=== PATIENT | female | born 1955 | race Caucasian/White ===

== ENCOUNTER 2018-03-17 05:28 | Inpatient (IN) ==
[2018-03-17] MEDS ORDERED: VANCOMYCIN 1,000 MG VIAL ONE (05:53)
[2018-03-17] MEDS ORDERED: SCOPOLAMINE 1.5 MG PATCH TRANSDERM ONE ×2 (05:53→06:00)
[2018-03-17] MEDS ORDERED: ceFAZolin 1,000 MG VIAL ONE (05:53)
[2018-03-17] MEDS ORDERED: FAMOTIDINE 20 MG TABLET ONE (05:53)
[2018-03-17] MEDS ORDERED: ceFAZolin 1,000 MG in SYRINGE 1 EACH IV ONE (06:00)
[2018-03-17] MEDS ORDERED: FAMOTIDINE 20 MG TABLET PO ONE (06:00)
[2018-03-17] MEDS ORDERED: LACTATED RINGERS 1,000 ML IV SCH (06:00)
[2018-03-17] MEDS ORDERED: VANCOMYCIN INJ 1,000 MG in SODIUM CHLORIDE 0.9% 250 ML IV ONE (06:00)
[2018-03-17] MEDS ORDERED: BACITRACIN OINT 0.9 GM PACK TOP ONE (06:49)
[2018-03-17] MEDS ORDERED: ROPIVACAINE 0.5% 30 ML VIAL ONE (06:50)
[2018-03-17] MEDS ORDERED: MAGNESIUM HYDROXIDE SUSP 30 ML UDCUP PO PRN (08:48)
[2018-03-17] MEDS ORDERED: diphenhydrAMINE CAP 25 MG CAPSULE PO PRN (08:48)
[2018-03-17] MEDS ORDERED: CLORAZEPATE 3.75 MG TABLET PO PRN (08:48)
[2018-03-17] MEDS ORDERED: ONDANSETRON 4 MG/2 ML VIAL ONE (09:06)
[2018-03-17] MEDS ORDERED: PROPOFOL 200 MG/20 ML VIAL IV ONE (09:09)
[2018-03-17] MEDS ORDERED: fentaNYL 100 MCG/2 ML VIAL ONE (09:09)
[2018-03-17] MEDS ORDERED: BUPIVACAINE SPINAL 0.75% 2 ML AMP SPINAL ONE (09:09)
[2018-03-17] MEDS: ONDANSETRON 4 MG/2 ML VIAL IV PRN (09:09)
[2018-03-17] MEDS ORDERED: MIDAZOLAM 2 MG/2 ML VIAL ONE (09:09)
[2018-03-17] MEDS ORDERED: KETAMINE 500 MG/10 ML VIAL ONE (09:10)
[2018-03-17] MEDS ORDERED: SODIUM CHLORIDE 0.9% 250 ML IV ONE (09:10)
[2018-03-17] MEDS ORDERED: ETOMIDATE 40 MG/20 ML VIAL IV ONE (09:10)
[2018-03-17] MEDS ORDERED: PHENYLEPHRINE 1 MG/10 ML SYRINGE IV ONE (09:10)
[2018-03-17] MEDS ORDERED: TRANEXAMIC ACID 1,000 MG/10 ML VIAL ONE (09:11)
[2018-03-17] MEDS ORDERED: LIDOCAINE 1% 5 ML VIAL ONE (09:11)
[2018-03-17] MEDS: DOCUSATE SODIUM 100 MG CAPSULE PO SCH ×2 (10:33→20:35)
[2018-03-17] MEDS: METOPROLOL SUCCINATE XL 50 MG TABLET PO SCH ×2 (10:33→20:34)
[2018-03-17] MEDS: FLECAINIDE 50 MG TABLET PO SCH ×2 (10:33→20:34)
[2018-03-17] MEDS: PANTOPRAZOLE 40 MG TABLET PO SCH (10:33)
[2018-03-17] MEDS: KETOROLAC 30 MG/1 ML VIAL IV SCH ×3 (10:41→21:50)
[2018-03-17] MEDS: LACTATED RINGERS 1,000 ML IV SCH ×2 (10:41→18:02)
[2018-03-17] MEDS: MEPERIDINE 50 MG/1 ML VIAL IV PRN ×5 (11:35→23:08)
[2018-03-17 11:45] LABS: Basophils % 0.5 % (0.0-0.8); Eosinophils # 0.1 10*3/uL (0.0-0.87); Eosinophils % 1.1 % (0.00-10.9); Hematocrit 38.8 VOL% (35.7-47.0); Hemoglobin 12.8 GM/DL (12.0-16.0); Immature Granulocytes % 0.5 %; Immature Granulocytes Absolute 0.03 #; Mean Corpuscular Hemoglobin 29 PG (27-34); Mean Corpuscular Volume 88.6 FL (87-102); Mean Platelet Volume 8.8 FL (9.6-12.0); Monocytes # 0.6 10*3/uL (0.11-0.8); Monocytes % 9.7 % (1.7-12.7); Neutrophils # 3.7 10*3/uL (1.4-7.4); Neutrophils % 57.2 % (38.7-73.9); Platelet Count 162 T/CUMM (130-400); Red Blood Count 4.38 MC/CUMM (3.8-5.5); Red Cell Distribution Width 13.3 % (9.3-17.3); White Blood Count 6.5 T/CUMM (4-12)
[2018-03-17 12:06] LABS: Calcium 8.5 MG/DL (8.5-10.1); Osmolality,Calculated 277.4 MOS/KG (273-304); Potassium 4.3 MMOL/L (3.5-5.1)
[2018-03-17] MEDS: ACETAMINOPHEN 500 MG TABLET PO SCH ×2 (13:09→18:01)
[2018-03-17] MEDS: traMADol 50 MG TABLET PO PRN ×2 (13:09→21:50)
[2018-03-17] MEDS: ceFAZolin 1,000 MG in SYRINGE 1 EACH IV SCH ×2 (14:32→21:51)
[2018-03-17] MEDS: ATORVASTATIN 20 MG TABLET PO SCH (18:57)
[2018-03-17] MEDS: AMITRIPTYLINE 25 MG TABLET PO SCH (20:35)
[2018-03-18] MEDS: ACETAMINOPHEN 500 MG TABLET PO SCH ×2 (00:34→06:04)
[2018-03-18] MEDS: LACTATED RINGERS 1,000 ML IV SCH (01:50)
[2018-03-18] MEDS: MEPERIDINE 50 MG/1 ML VIAL IV PRN ×6 (01:51→23:09)
[2018-03-18] MEDS: KETOROLAC 30 MG/1 ML VIAL IV SCH (03:36)
[2018-03-18] MEDS: traMADol 50 MG TABLET PO PRN ×3 (03:36→20:17)
[2018-03-18] MEDS: FONDAPARINUX 2.5 MG/0.5 ML SYRINGE SUBCUT SCH (04:47)
[2018-03-18] MEDS: ONDANSETRON 4 MG/2 ML VIAL IV PRN ×2 (05:11→19:17)
[2018-03-18 05:46] LABS: Basophils % 0.4 % (0.0-0.8); Eosinophils # 0.1 10*3/uL (0.0-0.87); Eosinophils % 1.8 % (0.00-10.9); Hematocrit 35.1 VOL% (35.7-47.0); Hemoglobin 11.6 GM/DL (12.0-16.0); Immature Granulocytes % 0.4 %; Immature Granulocytes Absolute 0.03 #; Lymphocytes # 1.7 10*3/uL (1.4-4.0); Lymphocytes % 22.2 % (21.3-54.2); Mean Corpuscular Hemoglobin 29 PG (27-34); Mean Corpuscular Volume 87.8 FL (87-102); Mean Platelet Volume 8.9 FL (9.6-12.0); Monocytes # 0.9 10*3/uL (0.11-0.8); Monocytes % 11.7 % (1.7-12.7); Neutrophils # 4.8 10*3/uL (1.4-7.4); Neutrophils % 63.5 % (38.7-73.9); Platelet Count 181 T/CUMM (130-400); Red Cell Distribution Width 13.2 % (9.3-17.3); White Blood Count 7.6 T/CUMM (4-12)
[2018-03-18 06:08] LABS: Calcium 8.3 MG/DL (8.5-10.1); Osmolality,Calculated 266.2 MOS/KG (273-304)
[2018-03-18] MEDS: PANTOPRAZOLE 40 MG TABLET PO SCH (09:11)
[2018-03-18] MEDS: DOCUSATE SODIUM 100 MG CAPSULE PO SCH ×2 (09:11→20:18)
[2018-03-18] MEDS: FLECAINIDE 50 MG TABLET PO SCH ×2 (09:12→20:17)
[2018-03-18] MEDS: METOPROLOL SUCCINATE XL 50 MG TABLET PO SCH ×2 (09:13→20:17)
[2018-03-18] MEDS: CELECOXIB 200 MG CAPSULE PO SCH (14:09)
[2018-03-18] MEDS: ATORVASTATIN 20 MG TABLET PO SCH (18:02)
[2018-03-18] MEDS: AMITRIPTYLINE 25 MG TABLET PO SCH (20:18)
[2018-03-18] MEDS: TEMAZEPAM 7.5 MG CAPSULE PO SCH (23:11)
[2018-03-19] MEDS: traMADol 50 MG TABLET PO PRN ×2 (03:09→23:13)
[2018-03-19] MEDS: FONDAPARINUX 2.5 MG/0.5 ML SYRINGE SUBCUT SCH (04:35)
[2018-03-19 06:19] LABS: Basophils % 0.2 % (0.0-0.8); Eosinophils # 0.1 10*3/uL (0.0-0.87); Eosinophils % 1.8 % (0.00-10.9); Hematocrit 31.4 VOL% (35.7-47.0); Hemoglobin 10.4 GM/DL (12.0-16.0); Immature Granulocytes % 0.4 %; Immature Granulocytes Absolute 0.02 #; Lymphocytes # 0.9 10*3/uL (1.4-4.0); Lymphocytes % 16.4 % (21.3-54.2); Mean Corpuscular HGB Conc 33.1 GM/DL (32-36); Mean Corpuscular Hemoglobin 29 PG (27-34); Mean Corpuscular Volume 87.5 FL (87-102); Mean Platelet Volume 9.4 FL (9.6-12.0); Monocytes # 0.6 10*3/uL (0.11-0.8); Monocytes % 10.8 % (1.7-12.7); Neutrophils # 3.9 10*3/uL (1.4-7.4); Neutrophils % 70.4 % (38.7-73.9); Platelet Count 136 T/CUMM (130-400); Red Blood Count 3.59 MC/CUMM (3.8-5.5); Red Cell Distribution Width 13.2 % (9.3-17.3); White Blood Count 5.6 T/CUMM (4-12)
[2018-03-19] MEDS: ONDANSETRON 4 MG/2 ML VIAL IV PRN ×2 (06:35→20:09)
[2018-03-19] MEDS: MEPERIDINE 50 MG/1 ML VIAL IV PRN ×3 (06:36→20:10)
[2018-03-19] MEDS: CELECOXIB 200 MG CAPSULE PO SCH (08:59)
[2018-03-19] MEDS: FLECAINIDE 50 MG TABLET PO SCH ×2 (08:59→20:08)
[2018-03-19] MEDS: PANTOPRAZOLE 40 MG TABLET PO SCH (09:00)
[2018-03-19] MEDS ORDERED: ESTRADIOL 1 MG TABLET PO SCH (09:00)
[2018-03-19] MEDS: METOPROLOL SUCCINATE XL 50 MG TABLET PO SCH ×2 (09:00→20:08)
[2018-03-19] MEDS: DOCUSATE SODIUM 100 MG CAPSULE PO SCH ×2 (09:00→20:08)
[2018-03-19] MEDS: POLYETHYLENE GLYCOL POWDER 17 GM PACK PO SCH (12:40)
[2018-03-19] MEDS: ATORVASTATIN 20 MG TABLET PO SCH (18:23)
[2018-03-19] MEDS: AMITRIPTYLINE 25 MG TABLET PO SCH (20:08)
[2018-03-19] MEDS: TEMAZEPAM 7.5 MG CAPSULE PO SCH (23:14)
[2018-03-20 05:51] LABS: Basophils % 0.4 % (0.0-0.8); Eosinophils # 0.1 10*3/uL (0.0-0.87); Eosinophils % 2.1 % (0.00-10.9); Hematocrit 32.2 VOL% (35.7-47.0); Hemoglobin 10.5 GM/DL (12.0-16.0); Immature Granulocytes % 0.4 %; Immature Granulocytes Absolute 0.02 #; Lymphocytes # 1.1 10*3/uL (1.4-4.0); Lymphocytes % 19.5 % (21.3-54.2); Mean Corpuscular HGB Conc 32.6 GM/DL (32-36); Mean Corpuscular Hemoglobin 29 PG (27-34); Mean Platelet Volume 9.4 FL (9.6-12.0); Monocytes # 0.6 10*3/uL (0.11-0.8); Monocytes % 10.2 % (1.7-12.7); Neutrophils # 3.8 10*3/uL (1.4-7.4); Neutrophils % 67.4 % (38.7-73.9); Platelet Count 143 T/CUMM (130-400); Red Blood Count 3.62 MC/CUMM (3.8-5.5); Red Cell Distribution Width 13.3 % (9.3-17.3); White Blood Count 5.7 T/CUMM (4-12)
[2018-03-20] MEDS: FONDAPARINUX 2.5 MG/0.5 ML SYRINGE SUBCUT SCH (05:56)
[2018-03-20] MEDS: ONDANSETRON 4 MG/2 ML VIAL IV PRN (06:14)
[2018-03-20] MEDS: MEPERIDINE 50 MG/1 ML VIAL IV PRN (06:15)
[2018-03-20 08:02] VITALS: BP 104/65
[2018-03-20] MEDS: METOPROLOL SUCCINATE XL 50 MG TABLET PO SCH (09:29)
[2018-03-20] MEDS: CELECOXIB 200 MG CAPSULE PO SCH (09:29)
[2018-03-20] MEDS: FLECAINIDE 50 MG TABLET PO SCH (09:29)
[2018-03-20] MEDS: PANTOPRAZOLE 40 MG TABLET PO SCH (09:30)
[2018-03-20] MEDS: DOCUSATE SODIUM 100 MG CAPSULE PO SCH (09:30)
[2018-03-20] MEDS: POLYETHYLENE GLYCOL POWDER 17 GM PACK PO SCH (09:31)
== END 2018-03-20 11:05 | disposition home health service (06) | DRG 470 ==
LOC: N.SDSINP 05:28 → N.OR 05:28 → N.3E 08:49
PROVIDERS: ADMIT Orthopaedic Surgery; ATTEND Orthopaedic Surgery

== ENCOUNTER 2020-11-21 21:21 | Observation (INO) ==
[2020-11-21 22:57] LABS: Basophils % 0.4 % (0.0-0.8); Eosinophils # 0.1 10*3/uL (0.0-0.87); Eosinophils % 1.7 % (0.00-10.9); Hemoglobin 14.8 GM/DL (12.0-16.0); Immature Granulocytes % 0.3 %; Immature Granulocytes Absolute 0.02 #; Lymphocytes # 1.9 10*3/uL (1.4-4.0); Lymphocytes % 27.2 % (21.3-54.2); Mean Corpuscular HGB Conc 33.6 GM/DL (32-36); Mean Corpuscular Volume 86.4 FL (87-102); Mean Platelet Volume 9.5 FL (9.6-12.0); Monocytes % 7.8 % (1.7-12.7); Neutrophils % 62.6 % (38.7-73.9); Platelet Count 165 T/CUMM (130-400); Red Blood Count 5.09 MC/CUMM (3.8-5.5); Red Cell Distribution Width 12.9 % (9.3-17.3); White Blood Count 7.1 T/CUMM (4-12)
[2020-11-21 23:14] LABS: PT Patient Result 10.7 SECS (10.5-12.0); Partial Thromboplastin Time 21.2 SECS (23.9-33.8)
[2020-11-21 23:19] LABS: Albumin 4.1 G/DL (3.4-5.0); Bilirubin,Total 0.5 MG/DL (0.20-1.00); Calcium 9.4 MG/DL (8.5-10.1); Osmolality,Calculated 277.7 MOS/KG (273-304); Potassium 3.8 MMOL/L (3.5-5.1); Total Protein 7.4 G/DL (6.4-8.2)
[2020-11-22] MEDS ORDERED: ONDANSETRON 4 MG/2 ML VIAL IV STA (00:30)
[2020-11-22] MEDS ORDERED: MEPERIDINE 25 MG/1 ML VIAL IV STA (00:30)
[2020-11-22] MEDS ORDERED: ACETAMINOPHEN 325 MG TABLET PO PRN (03:21)
[2020-11-22] MEDS: SODIUM CHLORIDE 0.9% 1,000 ML IV SCH ×2 (03:57→15:35)
[2020-11-22 05:05] LABS: Hematocrit 40.8 VOL% (35.7-47.0)
[2020-11-22] MEDS: MEPERIDINE 25 MG/1 ML VIAL IV PRN ×3 (05:05→15:35)
[2020-11-22] MEDS ORDERED: traMADol 50 MG TABLET PO PRN (07:28)
[2020-11-22 08:23] LABS: Basophils % 0.8 % (0.0-0.8); Eosinophils # 0.1 10*3/uL (0.0-0.87); Eosinophils % 1.4 % (0.00-10.9); Hematocrit 40.6 VOL% (35.7-47.0); Hemoglobin 13.9 GM/DL (12.0-16.0); Immature Granulocytes % 0.2 %; Immature Granulocytes Absolute 0.01 #; Lymphocytes # 1.7 10*3/uL (1.4-4.0); Lymphocytes % 34.6 % (21.3-54.2); Mean Corpuscular HGB Conc 34.2 GM/DL (32-36); Mean Corpuscular Volume 86.9 FL (87-102); Mean Platelet Volume 9.2 FL (9.6-12.0); Monocytes % 8.4 % (1.7-12.7); Neutrophils % 54.6 % (38.7-73.9); Platelet Count 130 T/CUMM (130-400); Red Blood Count 4.67 MC/CUMM (3.8-5.5); Red Cell Distribution Width 12.9 % (9.3-17.3); White Blood Count 4.9 T/CUMM (4-12)
[2020-11-22 08:55] LABS: Osmolality,Calculated 281.3 MOS/KG (273-304)
[2020-11-22] MEDS ORDERED: ESTRADIOL 0.01% VAG CREAM 42.5 GM TUBE VAG SCH (09:00)
[2020-11-22] MEDS: PIPERACILLIN/TAZOBACTAM 3,375 MG in SODIUM CHLORIDE 0.9% 100 ML IV SCH ×2 (09:35→17:15)
[2020-11-22] MEDS: CHOLECALCIFEROL 1,000 UNIT TABLET PO SCH (09:36)
[2020-11-22] MEDS: DOCUSATE SODIUM 100 MG CAPSULE PO SCH ×2 (09:36→21:22)
[2020-11-22] MEDS: ZINC GLUCONATE 50 MG TABLET PO SCH (09:36)
[2020-11-22] MEDS: ASPIRIN EC 81 MG TABLET PO SCH (09:36)
[2020-11-22] MEDS: PANTOPRAZOLE 40 MG TABLET PO SCH (09:37)
[2020-11-22] MEDS: FLECAINIDE 50 MG TABLET PO SCH ×2 (09:37→21:22)
[2020-11-22] MEDS ORDERED: INFLUENZA VIRUS VACCINE 0.5 ML SYRINGE IM ONE (09:37)
[2020-11-22] MEDS: atenoloL 25 MG TABLET PO SCH (09:37)
[2020-11-22] MEDS: ONDANSETRON 4 MG/2 ML VIAL IV PRN ×2 (09:39→15:36)
[2020-11-22] MEDS ORDERED: AMITRIPTYLINE 25 MG TABLET PO SCH (21:00)
[2020-11-22] MEDS ORDERED: ATORVASTATIN 10 MG TABLET PO SCH (21:00)
[2020-11-22] MEDS ORDERED: busPIRone 5 MG TABLET PO SCH (21:00)
[2020-11-23] MEDS: SODIUM CHLORIDE 0.9% 1,000 ML IV SCH ×2 (03:44→06:23)
[2020-11-23] MEDS: PIPERACILLIN/TAZOBACTAM 3,375 MG in SODIUM CHLORIDE 0.9% 100 ML IV SCH (03:45)
[2020-11-23 05:15] LABS: Basophils % 0.6 % (0.0-0.8); Eosinophils # 0.1 10*3/uL (0.0-0.87); Eosinophils % 2.1 % (0.00-10.9); Hematocrit 39.4 VOL% (35.7-47.0); Hemoglobin 13.1 GM/DL (12.0-16.0); Immature Granulocytes % 0.4 %; Immature Granulocytes Absolute 0.02 #; Lymphocytes # 1.6 10*3/uL (1.4-4.0); Lymphocytes % 29.8 % (21.3-54.2); Mean Corpuscular HGB Conc 33.2 GM/DL (32-36); Mean Corpuscular Volume 88.9 FL (87-102); Mean Platelet Volume 9.4 FL (9.6-12.0); Monocytes % 7.8 % (1.7-12.7); Neutrophils % 59.3 % (38.7-73.9); Platelet Count 145 T/CUMM (130-400); Red Blood Count 4.43 MC/CUMM (3.8-5.5); Red Cell Distribution Width 13.1 % (9.3-17.3); White Blood Count 5.2 T/CUMM (4-12)
[2020-11-23 05:17] LABS: INR 1.1; PT Patient Result 11.8 SECS (10.5-12.0)
[2020-11-23 05:54] LABS: Calcium 8.5 MG/DL (8.5-10.1); Osmolality,Calculated 277.4 MOS/KG (273-304); Potassium 3.9 MMOL/L (3.5-5.1); Risk Ratio 3.23; Thyroid Stimulating Hormone 1.98 uIU/ml (0.358-3.74); VLDL Cholesterol 19.4 MG/DL
[2020-11-23] MEDS ORDERED: LACTATED RINGERS 1,000 ML IV SCH (08:00)
[2020-11-23] MEDS: ASPIRIN EC 81 MG TABLET PO SCH (08:40)
[2020-11-23] MEDS: DOCUSATE SODIUM 100 MG CAPSULE PO SCH (08:40)
[2020-11-23] MEDS: PANTOPRAZOLE 40 MG TABLET PO SCH (08:41)
[2020-11-23] MEDS: CHOLECALCIFEROL 1,000 UNIT TABLET PO SCH (08:41)
[2020-11-23] MEDS: atenoloL 25 MG TABLET PO SCH (08:41)
[2020-11-23] MEDS: ZINC GLUCONATE 50 MG TABLET PO SCH (08:41)
[2020-11-23] MEDS: FLECAINIDE 50 MG TABLET PO SCH (08:41)
[2020-11-23] MEDS ORDERED: ESTRADIOL 1 MG TABLET PO SCH (09:00)
[2020-11-23] MEDS ORDERED: ESTRADIOL 0.01% VAG CREAM 42.5 GM TUBE VAG SCH (09:00)
[2020-11-23] MEDS ORDERED: ONDANSETRON 4 MG/2 ML VIAL ONE (12:09)
[2020-11-23] MEDS ORDERED: LIDOCAINE 2% 5 ML VIAL ONE (12:09)
[2020-11-23] MEDS ORDERED: propofoL 200 MG/20 ML VIAL IV ONE (12:09)
[2020-11-23 13:03] VITALS: BP 132/73
[2020-11-23] MEDS ORDERED: metroNIDAZOLE 500 MG TABLET PO SCH (17:00)
[2020-11-23] MEDS ORDERED: SULFAMETHOX/TRIMETHOPRIM 800-160 MG TABLET PO SCH (21:00)
== END 2020-11-23 15:20 | disposition home or self-care (01) ==
LOC: N.EDINP 21:21 → N.ED 21:21 → N.3E 11-22 02:57
PROVIDERS: ADMIT Family Medicine; ATTEND Family Medicine

== ENCOUNTER 2020-12-15 02:46 | Inpatient (IN) ==
[2020-12-15] MEDS ORDERED: PIPERACILLIN/TAZOBACTAM 3,375 MG in SODIUM CHLORIDE 0.9% 100 ML IV STA ×2 (03:13→06:16)
[2020-12-15] MEDS ORDERED: ONDANSETRON 4 MG/2 ML VIAL IV STA (03:13)
[2020-12-15] MEDS ORDERED: MEPERIDINE 25 MG/1 ML VIAL IV STA ×3 (03:13→06:22)
[2020-12-15] MEDS ORDERED: SODIUM CHLORIDE 0.9% 1,000 ML IV STA (03:13)
[2020-12-15] MEDS ORDERED: PANTOPRAZOLE 40 MG VIAL IV STA (03:13)
[2020-12-15 03:49] LABS: Basophils % 0.1 % (0.0-0.8); Hematocrit 45.3 VOL% (35.7-47.0); Hemoglobin 15.6 GM/DL (12.0-16.0); Immature Granulocytes % 0.5 %; Immature Granulocytes Absolute 0.04 #; Lymphocytes # 0.3 10*3/uL (1.4-4.0); Lymphocytes % 4.7 % (21.3-54.2); Mean Corpuscular HGB Conc 34.4 GM/DL (32-36); Mean Corpuscular Volume 85.8 FL (87-102); Mean Platelet Volume 9.4 FL (9.6-12.0); Monocytes % 5.6 % (1.7-12.7); Neutrophils % 89.1 % (38.7-73.9); Platelet Count 144 T/CUMM (130-400); Red Blood Count 5.28 MC/CUMM (3.8-5.5); Red Cell Distribution Width 12.6 % (9.3-17.3); White Blood Count 7.3 T/CUMM (4-12)
[2020-12-15 04:11] LABS: Band Neutrophils 6 % (0-10); Lymphocytes 12 % (20-55); Platelet Estimate Normal; Segmented Neutrophils 79 % (50-85); Total Cells Counted 100
[2020-12-15 04:26] LABS: Alanine Aminotransferase 763 U/L (13-56); Albumin 4.6 G/DL (3.4-5.0); Alkaline Phosphatase 195 U/L (45-117); Amylase 23 U/L (25-115); Aspartate Amino Transferase 1034 U/L (0-37); Blood Urea Nitrogen 15 MG/DL (7-18); Calcium 9.8 MG/DL (8.5-10.1); Carbon Dioxide 27 MMOL/L (21-32); Estimated Glom Filtration Rate 67 ML/MIN; Glucose 125 MG/DL (74-106); Potassium 3.3 MMOL/L (3.5-5.1); Sodium 136 MMOL/L (136-145); Total Protein 7.8 G/DL (6.4-8.2)
[2020-12-15 04:43] LABS: Bacteria,Urine Occasional /HPF (Few); Bilirubin,Urine Negative (Negative); Blood, Urine Small mg/dL (Negative); Glucose,Urine (UA) Negative (Negative); Ketones,Urine Negative (Negative); Mucus,Urine Occasional /LPF (Occasional); Nitrite,Urine Negative (Negative); Protein,Urine Negative; RBC,Urine 6 /HPF (0-4); Squamous Epithelial Cell,Urine Occasional /HPF (0-10); Urine Appearance CLEAR (Clear); Urine Color Yellow (Yellow); Urine Specific Gravity 1.013 (1.001-1.035)
[2020-12-15 05:57] LABS: Hepatitis B Core IgM Quant 0.07 Index; Hepatitis B Surface Ag Quant < 0.10 Index; Hepatitis B Surface Ag Result Non-Reactive (NonReactive); Hepatitis C Virus Ab Quant 0.05 Index; Hepatitis C Virus Ab Result Non-Reactive (NonReactive)
[2020-12-15] MEDS ORDERED: HYDROmorphone 2 MG/1 ML VIAL IV STA (06:20)
[2020-12-15] MEDS ORDERED: diphenhydrAMINE 50 MG/1 ML VIAL IV STA (06:20)
[2020-12-15] MEDS ORDERED: ACETAMINOPHEN 325 MG TABLET PO PRN (07:15)
[2020-12-15] MEDS ORDERED: INDOMETHACIN SUPP 50 MG SUPP RECTAL ONE (09:52)
[2020-12-15] MEDS: LACTATED RINGERS 1,000 ML IV SCH ×2 (10:30→12:30)
[2020-12-15] MEDS ORDERED: fentaNYL 100 MCG/2 ML VIAL ONE ×2 (10:43→12:14)
[2020-12-15 11:12] LABS: INR 1.2; PT Patient Result 13.2 SECS (10.5-12.0)
[2020-12-15] MEDS ORDERED: SEVOFLURANE 1 UNIT/15 MINUTE INH ONE ×2 (12:13→13:09)
[2020-12-15] MEDS ORDERED: propofoL 200 MG/20 ML VIAL IV ONE (12:13)
[2020-12-15] MEDS ORDERED: ROCURONIUM 50 MG/5 ML VIAL IV ONE (12:13)
[2020-12-15] MEDS ORDERED: LIDOCAINE 2% 5 ML VIAL ONE (12:13)
[2020-12-15] MEDS ORDERED: DEXAMETHASONE 4 MG/1 ML VIAL ONE (12:13)
[2020-12-15] MEDS ORDERED: ONDANSETRON 4 MG/2 ML VIAL ONE (12:13)
[2020-12-15] MEDS ORDERED: CALCIUM CHLORIDE 1,000 MG/10 ML VIAL IV ONE (12:52)
[2020-12-15] MEDS ORDERED: HYDROCORTISONE 100 MG VIAL ONE (12:52)
[2020-12-15] MEDS ORDERED: PHENYLEPHRINE 10 MG/1 ML VIAL IV ONE (12:54)
[2020-12-15] MEDS ORDERED: SUGAMMADEX 200 MG/2 ML VIAL IV ONE (13:08)
[2020-12-15] MEDS ORDERED: SODIUM CHLORIDE 0.9% 500 ML IV ONE (13:10)
[2020-12-15] MEDS: PIPERACILLIN/TAZOBACTAM 3,375 MG in SODIUM CHLORIDE 0.9% 100 ML IV SCH ×2 (13:23→20:24)
[2020-12-15] MEDS: MEPERIDINE 25 MG/1 ML VIAL IV PRN ×2 (15:03→20:24)
[2020-12-15] MEDS: PANTOPRAZOLE 40 MG VIAL IV SCH (15:06)
[2020-12-15] MEDS: ONDANSETRON 4 MG/2 ML VIAL IV PRN ×2 (15:06→20:24)
[2020-12-15] MEDS: DEXTROSE 5% LACTATED RINGERS 1,000 ML IV SCH ×2 (15:08→17:34)
[2020-12-16] MEDS: PIPERACILLIN/TAZOBACTAM 3,375 MG in SODIUM CHLORIDE 0.9% 100 ML IV SCH ×3 (03:06→21:15)
[2020-12-16] MEDS: DEXTROSE 5% LACTATED RINGERS 1,000 ML IV SCH ×3 (03:06→14:35)
[2020-12-16] MEDS: ENOXAPARIN 40 MG/0.4 ML SYRINGE SUBCUT SCH (03:07)
[2020-12-16 04:43] LABS: Basophils % 0.2 % (0.0-0.8); Eosinophils % 0.1 % (0.00-10.9); Hematocrit 36.1 VOL% (35.7-47.0); Hemoglobin 12.1 GM/DL (12.0-16.0); Immature Granulocytes % 0.9 %; Immature Granulocytes Absolute 0.08 #; Lymphocytes # 1.1 10*3/uL (1.4-4.0); Mean Corpuscular HGB Conc 33.5 GM/DL (32-36); Mean Corpuscular Volume 88.5 FL (87-102); Mean Platelet Volume 9.8 FL (9.6-12.0); Monocytes % 7.8 % (1.7-12.7); Platelet Count 93 T/CUMM (130-400); Red Blood Count 4.08 MC/CUMM (3.8-5.5); Red Cell Distribution Width 13.2 % (9.3-17.3); White Blood Count 8.9 T/CUMM (4-12)
[2020-12-16 05:10] LABS: Albumin 2.7 G/DL (3.4-5.0); Bilirubin,Total 5.5 MG/DL (0.20-1.00); Calcium 8.7 MG/DL (8.5-10.1); Osmolality,Calculated 275.8 MOS/KG (273-304); Potassium 3.6 MMOL/L (3.5-5.1); Total Protein 5.4 G/DL (6.4-8.2)
[2020-12-16 05:11] LABS: Band Neutrophils 1 % (0-10); Lymphocytes 33 % (20-55); Segmented Neutrophils 65 % (50-85); Total Cells Counted 100
[2020-12-16 05:12] LABS: Platelet Estimate Adequate
[2020-12-16] MEDS ORDERED: tiZANidine 4 MG TABLET PO PRN (08:45)
[2020-12-16] MEDS: atenoloL 25 MG TABLET PO SCH (10:24)
[2020-12-16] MEDS: ESTRADIOL VAG SCH (10:24)
[2020-12-16] MEDS: ASPIRIN EC 81 MG TABLET PO SCH (10:27)
[2020-12-16] MEDS: PANTOPRAZOLE 40 MG VIAL IV SCH (10:27)
[2020-12-16] MEDS: LACTATED RINGERS 1,000 ML IV SCH (10:32)
[2020-12-16] MEDS: FLECAINIDE 50 MG TABLET PO SCH ×2 (12:41→21:14)
[2020-12-16] MEDS: MEPERIDINE 25 MG/1 ML VIAL IV PRN ×2 (19:14→23:21)
[2020-12-16] MEDS: ONDANSETRON 4 MG/2 ML VIAL IV PRN (19:17)
[2020-12-16] MEDS: busPIRone 5 MG TABLET PO SCH (21:14)
[2020-12-16] MEDS: AMITRIPTYLINE 25 MG TABLET PO SCH (21:14)
[2020-12-17] MEDS: PIPERACILLIN/TAZOBACTAM 3,375 MG in SODIUM CHLORIDE 0.9% 100 ML IV SCH ×3 (03:25→21:41)
[2020-12-17] MEDS: ENOXAPARIN 40 MG/0.4 ML SYRINGE SUBCUT SCH (04:40)
[2020-12-17] MEDS: MEPERIDINE 25 MG/1 ML VIAL IV PRN ×4 (04:40→21:43)
[2020-12-17] MEDS: ONDANSETRON 4 MG/2 ML VIAL IV PRN ×3 (04:40→17:51)
[2020-12-17 06:12] LABS: Basophils % 0.4 % (0.0-0.8); Eosinophils # 0.1 10*3/uL (0.0-0.87); Eosinophils % 1.7 % (0.00-10.9); Hemoglobin 12.2 GM/DL (12.0-16.0); Immature Granulocytes % 0.4 %; Immature Granulocytes Absolute 0.02 #; Lymphocytes # 0.6 10*3/uL (1.4-4.0); Lymphocytes % 12.7 % (21.3-54.2); Mean Corpuscular HGB Conc 33.9 GM/DL (32-36); Mean Corpuscular Volume 89.1 FL (87-102); Mean Platelet Volume 9.9 FL (9.6-12.0); Monocytes % 5.4 % (1.7-12.7); Neutrophils % 79.4 % (38.7-73.9); Platelet Count 73 T/CUMM (130-400); Red Blood Count 4.04 MC/CUMM (3.8-5.5); Red Cell Distribution Width 13.1 % (9.3-17.3); White Blood Count 4.7 T/CUMM (4-12)
[2020-12-17] MEDS: DEXTROSE 5% LACTATED RINGERS 1,000 ML IV SCH ×2 (06:16→21:39)
[2020-12-17 06:31] LABS: Albumin 2.5 G/DL (3.4-5.0); Calcium 8.4 MG/DL (8.5-10.1); Osmolality,Calculated 280.3 MOS/KG (273-304); Potassium 3.7 MMOL/L (3.5-5.1); Total Protein 5.5 G/DL (6.4-8.2)
[2020-12-17 06:55] LABS: Anisocytosis 1+; Burr Cells Few; Platelet Estimate Decreased
[2020-12-17] MEDS: PANTOPRAZOLE 40 MG VIAL IV SCH (09:41)
[2020-12-17] MEDS: FLECAINIDE 50 MG TABLET PO SCH ×2 (09:43→21:42)
[2020-12-17] MEDS: ASPIRIN EC 81 MG TABLET PO SCH (09:43)
[2020-12-17] MEDS: atenoloL 25 MG TABLET PO SCH (09:43)
[2020-12-17] MEDS: LACTATED RINGERS 1,000 ML IV SCH (12:02)
[2020-12-17] MEDS: FAMOTIDINE 20 MG TABLET PO SCH (21:42)
[2020-12-17] MEDS: AMITRIPTYLINE 25 MG TABLET PO SCH (21:42)
[2020-12-17] MEDS: busPIRone 5 MG TABLET PO SCH (21:42)
[2020-12-18] MEDS: PIPERACILLIN/TAZOBACTAM 3,375 MG in SODIUM CHLORIDE 0.9% 100 ML IV SCH ×3 (03:10→21:03)
[2020-12-18 06:29] LABS: Basophils % 0.3 % (0.0-0.8); Eosinophils # 0.1 10*3/uL (0.0-0.87); Eosinophils % 1.4 % (0.00-10.9); Hemoglobin 11.7 GM/DL (12.0-16.0); Immature Granulocytes % 0.3 %; Immature Granulocytes Absolute 0.01 #; Lymphocytes # 0.7 10*3/uL (1.4-4.0); Lymphocytes % 18.1 % (21.3-54.2); Mean Corpuscular HGB Conc 33.4 GM/DL (32-36); Mean Corpuscular Volume 88.8 FL (87-102); Mean Platelet Volume 10.1 FL (9.6-12.0); Monocytes % 7.6 % (1.7-12.7); Neutrophils % 72.3 % (38.7-73.9); Platelet Count 80 T/CUMM (130-400); Red Blood Count 3.94 MC/CUMM (3.8-5.5); Red Cell Distribution Width 12.8 % (9.3-17.3); White Blood Count 3.7 T/CUMM (4-12)
[2020-12-18 06:53] LABS: Albumin 2.6 G/DL (3.4-5.0); Bilirubin,Total 1.7 MG/DL (0.20-1.00); Calcium 8.9 MG/DL (8.5-10.1); Microcytosis 1+; Osmolality,Calculated 269.8 MOS/KG (273-304); Potassium 3.6 MMOL/L (3.5-5.1); Total Protein 5.7 G/DL (6.4-8.2)
[2020-12-18 06:54] LABS: Platelet Estimate Decreased
[2020-12-18] MEDS: PANTOPRAZOLE 40 MG VIAL IV SCH (12:00)
[2020-12-18] MEDS: ONDANSETRON 4 MG/2 ML VIAL IV PRN ×2 (12:01→21:03)
[2020-12-18] MEDS: FLECAINIDE 50 MG TABLET PO SCH ×2 (14:05→21:02)
[2020-12-18] MEDS: ASPIRIN EC 81 MG TABLET PO SCH (14:05)
[2020-12-18] MEDS: atenoloL 25 MG TABLET PO SCH (14:05)
[2020-12-18] MEDS: DEXTROSE 5% LACTATED RINGERS 1,000 ML IV SCH ×2 (16:00)
[2020-12-18] MEDS ORDERED: PROMETHAZINE 25 MG/1 ML VIAL IM PRN (18:14)
[2020-12-18] MEDS: FAMOTIDINE 20 MG TABLET PO SCH (21:02)
[2020-12-18] MEDS: AMITRIPTYLINE 25 MG TABLET PO SCH (21:03)
[2020-12-18] MEDS: busPIRone 5 MG TABLET PO SCH (21:03)
[2020-12-19] MEDS: PIPERACILLIN/TAZOBACTAM 3,375 MG in SODIUM CHLORIDE 0.9% 100 ML IV SCH ×2 (04:41→13:13)
[2020-12-19 06:28] LABS: Basophils % 0.6 % (0.0-0.8); Eosinophils # 0.1 10*3/uL (0.0-0.87); Hematocrit 34.9 VOL% (35.7-47.0); Hemoglobin 11.7 GM/DL (12.0-16.0); Immature Granulocytes % 0.3 %; Immature Granulocytes Absolute 0.01 #; Lymphocytes % 27.4 % (21.3-54.2); Mean Corpuscular HGB Conc 33.5 GM/DL (32-36); Mean Corpuscular Volume 87.9 FL (87-102); Mean Platelet Volume 9.7 FL (9.6-12.0); Monocytes % 11.1 % (1.7-12.7); Neutrophils % 58.6 % (38.7-73.9); Platelet Count 101 T/CUMM (130-400); Red Blood Count 3.97 MC/CUMM (3.8-5.5); Red Cell Distribution Width 12.2 % (9.3-17.3); White Blood Count 3.5 T/CUMM (4-12)
[2020-12-19 06:46] LABS: Albumin 2.6 G/DL (3.4-5.0); Bilirubin,Total 1.2 MG/DL (0.20-1.00); Calcium 8.8 MG/DL (8.5-10.1); Osmolality,Calculated 269.8 MOS/KG (273-304); Potassium 3.7 MMOL/L (3.5-5.1); Total Protein 5.9 G/DL (6.4-8.2)
[2020-12-19] MEDS: DEXTROSE 5% LACTATED RINGERS 1,000 ML IV SCH ×2 (08:28→08:39)
[2020-12-19] MEDS: atenoloL 25 MG TABLET PO SCH (08:38)
[2020-12-19] MEDS: FLECAINIDE 50 MG TABLET PO SCH (08:38)
[2020-12-19] MEDS: PANTOPRAZOLE 40 MG VIAL IV SCH (08:39)
[2020-12-19] MEDS: ASPIRIN EC 81 MG TABLET PO SCH (08:39)
[2020-12-19] MEDS: ESTRADIOL VAG SCH (08:54)
[2020-12-19 11:23] VITALS: BP 132/77
== END 2020-12-19 13:05 | disposition home or self-care (01) | DRG 445 ==
LOC: N.ED 02:46 → N.EDINP 07:15 → N.2W 09:03
PROVIDERS: ADMIT Family Medicine; ATTEND Family Medicine
PROC: ERCPWSP (ICD-10-PCS; 2020-12-15 11:35)

== ENCOUNTER 2022-04-23 06:00 | Inpatient (IN) ==
[2022-04-16 16:59] LABS: Basophils % 0.5 % (0.0-0.8); Eosinophils # 0.1 10*3/uL (0.0-0.87); Eosinophils % 1.6 % (0.00-10.9); Hemoglobin 15.2 GM/DL (12.0-16.0); Immature Granulocytes % 0.5 %; Immature Granulocytes Absolute 0.04 #; Lymphocytes # 2.3 10*3/uL (1.4-4.0); Lymphocytes % 29.7 % (21.3-54.2); Mean Corpuscular HGB Conc 33.8 GM/DL (32-36); Mean Corpuscular Volume 89.1 FL (87-102); Mean Platelet Volume 9.3 FL (9.6-12.0); Monocytes # 0.6 10*3/uL (0.11-0.8); Monocytes % 7.2 % (1.7-12.7); Neutrophils % 60.5 % (38.7-73.9); Platelet Count 228 T/CUMM (130-400); Red Blood Count 5.05 MC/CUMM (3.8-5.5); Red Cell Distribution Width 13.1 % (9.3-17.3); White Blood Count 7.74 T/CUMM (4-12)
[2022-04-16 17:06] LABS: Calcium 9.3 MG/DL (8.5-10.1); Osmolality,Calculated 279.4 MOS/KG (273-304); Potassium 4.1 MMOL/L (3.5-5.1)
[2022-04-23] MEDS ORDERED: ALVIMOPAN 12 MG CAPSULE PO ONE (06:30)
[2022-04-23] MEDS ORDERED: ERTAPENEM 1,000 MG in SODIUM CHLORIDE 0.9% 100 ML IV ONE (06:30)
[2022-04-23] MEDS ORDERED: SCOPOLAMINE 1.5 MG PATCH TRANSDERM ONE (06:55)
[2022-04-23] MEDS ORDERED: GABAPENTIN 400 MG CAPSULE PO ONE (06:55)
[2022-04-23] MEDS ORDERED: DIAZEPAM 5 MG TABLET PO ONE (06:55)
[2022-04-23] MEDS ORDERED: ACETAMINOPHEN 500 MG TABLET PO ONE (06:55)
[2022-04-23] MEDS ORDERED: FAMOTIDINE 20 MG TABLET PO ONE (06:55)
[2022-04-23] MEDS ORDERED: LACTATED RINGERS 1,000 ML IV SCH (07:00)
[2022-04-23] MEDS ORDERED: ROCURONIUM 50 MG/5 ML VIAL IV ONE (08:57)
[2022-04-23] MEDS ORDERED: fentaNYL 100 MCG/2 ML VIAL ONE (08:57)
[2022-04-23] MEDS ORDERED: LIDOCAINE 2% 5 ML VIAL ONE (08:57)
[2022-04-23] MEDS ORDERED: propofoL 200 MG/20 ML VIAL IV ONE (08:57)
[2022-04-23] MEDS ORDERED: ONDANSETRON 4 MG/2 ML VIAL ONE ×3 (08:57→14:04)
[2022-04-23] MEDS ORDERED: MIDAZOLAM 2 MG/2 ML VIAL ONE (09:00)
[2022-04-23] MEDS ORDERED: KETAMINE 500 MG/10 ML VIAL ONE (09:00)
[2022-04-23] MEDS ORDERED: SEVOFLURANE 1 UNIT/15 MINUTE INH ONE ×2 (09:03→12:58)
[2022-04-23] MEDS ORDERED: BUPIVACAINE MPF 0.25% 10 ML VIAL ONE (09:17)
[2022-04-23] MEDS ORDERED: TISSUE ADHESIVE 1 EACH APPLICATOR TOP ONE (09:17)
[2022-04-23] MEDS ORDERED: LIDOCAINE 1%/EPI INJ 20 ML VIAL ONE (09:18)
[2022-04-23] MEDS ORDERED: ePHEDrine 50 MG/ML VIAL ONE (10:22)
[2022-04-23] MEDS ORDERED: INDOCYANINE GREEN 25 MG VIAL IV ONE (11:33)
[2022-04-23] MEDS ORDERED: PHENYLEPHRINE 1 MG/10 ML SYRINGE IV ONE ×3 (11:44→12:44)
[2022-04-23] MEDS ORDERED: SUGAMMADEX 200 MG/2 ML VIAL IV ONE (12:54)
[2022-04-23] MEDS ORDERED: MEPERIDINE 25 MG/1 ML VIAL ONE (14:04)
[2022-04-23] MEDS ORDERED: MEPERIDINE 25 MG/1 ML VIAL IV PRN (14:07)
[2022-04-23] MEDS ORDERED: ONDANSETRON 4 MG/2 ML VIAL IV PRN ×2 (14:07→14:39)
[2022-04-23] MEDS ORDERED: HYDROmorphone 1 MG/1 ML SYRINGE IV PRN (14:39)
[2022-04-23 14:58] LABS: Basophils % 0.2 % (0.0-0.8); Eosinophils % 0.2 % (0.00-10.9); Hematocrit 41.5 VOL% (35.7-47.0); Hemoglobin 13.9 GM/DL (12.0-16.0); Immature Granulocytes % 0.3 %; Immature Granulocytes Absolute 0.03 #; Lymphocytes # 1.2 10*3/uL (1.4-4.0); Mean Corpuscular HGB Conc 33.5 GM/DL (32-36); Mean Corpuscular Volume 89.6 FL (87-102); Monocytes # 0.3 10*3/uL (0.11-0.8); Neutrophils % 85.3 % (38.7-73.9); Platelet Count 142 T/CUMM (130-400); Red Blood Count 4.63 MC/CUMM (3.8-5.5); White Blood Count 10.88 T/CUMM (4-12)
[2022-04-23 15:15] LABS: Calcium 8.5 MG/DL (8.5-10.1); Osmolality,Calculated 276.5 MOS/KG (273-304); Potassium 4.2 MMOL/L (3.5-5.1)
[2022-04-23] MEDS: LACTATED RINGERS 1,000 ML IV SCH (15:40)
[2022-04-23] MEDS: KETOROLAC 15 MG/1 ML VIAL IV SCH ×2 (15:40→21:13)
[2022-04-23] MEDS: AMITRIPTYLINE 25 MG TABLET PO SCH (21:09)
[2022-04-23] MEDS: FLECAINIDE 50 MG TABLET PO SCH (21:09)
[2022-04-23] MEDS: ATORVASTATIN 10 MG TABLET PO SCH (21:09)
[2022-04-23] MEDS: ALVIMOPAN 12 MG CAPSULE PO SCH (21:09)
[2022-04-24] MEDS: KETOROLAC 15 MG/1 ML VIAL IV SCH ×4 (03:30→20:40)
[2022-04-24 05:57] LABS: Basophils % 0.1 % (0.0-0.8); Hematocrit 38.7 VOL% (35.7-47.0); Hemoglobin 12.7 GM/DL (12.0-16.0); Immature Granulocytes Absolute 0.16 #; Lymphocytes # 1.5 10*3/uL (1.4-4.0); Lymphocytes % 9.1 % (21.3-54.2); Mean Corpuscular HGB Conc 32.8 GM/DL (32-36); Mean Corpuscular Volume 89.8 FL (87-102); Mean Platelet Volume 9.5 FL (9.6-12.0); Monocytes # 0.9 10*3/uL (0.11-0.8); Monocytes % 5.3 % (1.7-12.7); Neutrophils % 84.5 % (38.7-73.9); Platelet Count 150 T/CUMM (130-400); Red Blood Count 4.31 MC/CUMM (3.8-5.5); Red Cell Distribution Width 13.2 % (9.3-17.3); White Blood Count 16.33 T/CUMM (4-12)
[2022-04-24 06:23] LABS: Calcium 8.4 MG/DL (8.5-10.1); Osmolality,Calculated 273.1 MOS/KG (273-304); Potassium 4.1 MMOL/L (3.5-5.1)
[2022-04-24] MEDS ORDERED: LACTATED RINGERS 500 ML IV ONE (07:37)
[2022-04-24] MEDS: LACTATED RINGERS 1,000 ML IV SCH ×4 (07:50→23:57)
[2022-04-24] MEDS: PANTOPRAZOLE 40 MG TABLET PO SCH (08:07)
[2022-04-24] MEDS: atenoloL 25 MG TABLET PO SCH (08:07)
[2022-04-24] MEDS: ASPIRIN 325 MG TABLET PO SCH (08:07)
[2022-04-24] MEDS: ALVIMOPAN 12 MG CAPSULE PO SCH ×2 (08:07→20:40)
[2022-04-24] MEDS: FLECAINIDE 50 MG TABLET PO SCH ×2 (08:07→20:42)
[2022-04-24] MEDS ORDERED: ENOXAPARIN 40 MG/0.4 ML SYRINGE SUBCUT SCH (09:00)
[2022-04-24 12:09] LABS: Basophils % 0.2 % (0.0-0.8); Eosinophils % 0.1 % (0.00-10.9); Hematocrit 35.1 VOL% (35.7-47.0); Hemoglobin 11.6 GM/DL (12.0-16.0); Immature Granulocytes % 0.9 %; Immature Granulocytes Absolute 0.11 #; Lymphocytes # 1.6 10*3/uL (1.4-4.0); Lymphocytes % 12.8 % (21.3-54.2); Mean Corpuscular Volume 90.9 FL (87-102); Mean Platelet Volume 9.1 FL (9.6-12.0); Monocytes # 0.7 10*3/uL (0.11-0.8); Monocytes % 5.2 % (1.7-12.7); Neutrophils % 80.8 % (38.7-73.9); Platelet Count 129 T/CUMM (130-400); Red Blood Count 3.86 MC/CUMM (3.8-5.5); Red Cell Distribution Width 13.4 % (9.3-17.3); White Blood Count 12.45 T/CUMM (4-12)
[2022-04-24] MEDS: AMITRIPTYLINE 25 MG TABLET PO SCH (20:40)
[2022-04-24] MEDS: ATORVASTATIN 10 MG TABLET PO SCH (20:40)
[2022-04-25] MEDS: KETOROLAC 15 MG/1 ML VIAL IV SCH ×3 (03:19→08:27)
[2022-04-25 05:25] LABS: Basophils % 0.1 % (0.0-0.8); Eosinophils % 0.1 % (0.00-10.9); Hematocrit 34.9 VOL% (35.7-47.0); Hemoglobin 11.6 GM/DL (12.0-16.0); Immature Granulocytes % 1.4 %; Immature Granulocytes Absolute 0.14 #; Lymphocytes # 0.7 10*3/uL (1.4-4.0); Lymphocytes % 7.5 % (21.3-54.2); Mean Corpuscular HGB Conc 33.2 GM/DL (32-36); Mean Corpuscular Volume 89.3 FL (87-102); Mean Platelet Volume 9.6 FL (9.6-12.0); Monocytes # 0.5 10*3/uL (0.11-0.8); Monocytes % 5.5 % (1.7-12.7); Neutrophils % 85.4 % (38.7-73.9); Platelet Count 119 T/CUMM (130-400); Red Blood Count 3.91 MC/CUMM (3.8-5.5); Red Cell Distribution Width 13.2 % (9.3-17.3); White Blood Count 9.67 T/CUMM (4-12)
[2022-04-25 05:46] LABS: Calcium 8.6 MG/DL (8.5-10.1); Osmolality,Calculated 277.5 MOS/KG (273-304); Potassium 3.7 MMOL/L (3.5-5.1)
[2022-04-25] MEDS: LACTATED RINGERS 1,000 ML IV SCH (07:10)
[2022-04-25] MEDS ORDERED: ENOXAPARIN 40 MG/0.4 ML SYRINGE SUBCUT SCH (08:00)
[2022-04-25 08:10] VITALS: BP 119/57
[2022-04-25] MEDS: atenoloL 25 MG TABLET PO SCH (08:26)
[2022-04-25] MEDS: ASPIRIN 325 MG TABLET PO SCH (08:26)
[2022-04-25] MEDS: PANTOPRAZOLE 40 MG TABLET PO SCH (08:26)
[2022-04-25] MEDS: FLECAINIDE 50 MG TABLET PO SCH (08:26)
== END 2022-04-25 10:36 | disposition home or self-care (01) | DRG 330 ==
LOC: N.OR 06:00 → N.SDSINP 06:00 → N.ADMINP 13:38 → EDSDCBED 14:34 → N.3E 14:34 → N.OR 04-25 10:36 → UNDODEPSDC 04-25 14:02
PROVIDERS: ADMIT Surgery; ATTEND Surgery